=== PATIENT | female | born 1950 | race Caucasian/White ===

== ENCOUNTER → 2017-07-12 | Outpatient (CLI) | payer OTHER ==
[~2017-07-12] VITALS: Ht 160 cm; Wt 90.3 kg
[~2017-07-12] MED LIST: ATENOLOL 50MG T50 M1 PO; LIPITOR 20 MG T20 M1 PO; METFORMIN HCL500 MG PO; NORVASC5 M1 PO; PRINZIDE 20-251 EACH PO; TOUJEO SOL300 UNIT/1 SUBQ
--- NOTE | ~2017-07-12 | HPC ---
[facility] [place] [address] PAIN MANAGEMENT CONSULTATION Name: ANAT WHARTON Room #: REG [facility] M.R.#: [id number] Admission: 07/12/17 Attend Phys: Manuelito Bridges DO Discharge: Date of : 48 Report #: [id number] THIS REPORT FOR: //name// CC: Nikki Bridges The patient is a 67-year-old female seen, in consultation at the request of Dr. Jones for assistance with management of pain, primarily low back pain. She is status post lumbar decompressive laminectomy L2-L3, L3-L4 01/10/2017. The patient notes she had onset of low back pain around 2014 without antecedent trauma or overuse. She notes the pain was in the low back, groin and down the back of both legs. Following surgery, symptoms are better, but the axial back pain remain problematic. Incidentally, she prior had a left total hip arthroplasty in September 2016, with some relief of left hip pain, but the groin pain remained problematic. She has been doing physical therapy for months and notes that the low back pain, right greater than left remains problematic. She rates it 8 to "12" on a 0-10 visual analog scale. She describes continuous, burning, shooting, cramping, aching, gnawing, throbbing, sharp, stabbing, tender pain, it is exacerbated with any weightbearing. 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 She does note a single episode of right lumbar radicular pain to July, which occurred without antecedent trauma and actually brought her to the ER. This resolved somewhat with p.o. steroids. Her primary pain again is axial back, at this time left a little greater than right, though reviewing Dr. Jorge Jones's notes, her prior back pain has been right greater than left. She does have a little decreased "fuzzy" sensation in the right leg in an L4 distribution, though she notes this is fairly nominal. REVIEW OF SYSTEMS: A complete review of systems was attached to chart and was gone over with the patient. She is single. She does not smoke or drink alcohol to excess. History of diabetes, recently started on metformin, notes that her hemoglobin A1c has come down from 14 something to 6.9 at last visit. Significant hypertension for which she takes amlodipine, lisinopril, hydrochlorothiazide, and atenolol. Dyslipidemia for which she takes atorvastatin. Prior surgeries have Included the aforementioned left total hip arthroplasty in September 2016 and the aforementioned L2-L3 and L3-L4 decompressive lumbar laminectomies with Dr. Jorge Jones 01/10/2017. 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 She has been off work since September due to pain concerns. She is desirous of returning to work. Pain impact score is fairly high at 49/70. PHYSICAL EXAMINATION: Reveals a 5 feet, 3 inches, 199 pounds female, BMI is 35.3 kg/m2. Blood pressure is 121/63, pulse 80-90, respirations 16. Cranial nerves 2-12 are grossly intact. Pupils are equal, react to light and accommodation. Extraocular muscles are intact. Cervical range of motion is [facility] [address] [place] [address] PAIN MANAGEMENT CONSULTATION Name: ANAT WHARTON Room #: REG [facility] M.R.#: [id number] Admission: 07/12/17 Attend Phys: Manuelito Bridges, DO Discharge: Date of : 48 Report #: [id number] full. Thyroid is unremarkable. Upper extremity strength is preserved. Heart is regular and rhythmical without murmur. Lungs are clear to auscultation. Abdomen shows endomorphic build. Rises from chair using armrest. Gait is actually tandem. She can walk on her toes and heels. Lumbar flexion is limited to 60 degrees. Very tender from about L3 down to L5 in the lumbar paravertebral areas. Side bending and rotation significantly exacerbate pain. Lower extremity strength is preserved. Straight leg raise is negative. Patellar and Achilles reflexes with isometric contraction are symmetric. Dom's test is negative on the right, deferred on the left (status post total hip arthroplasty). DIAGNOSTIC STUDIES: All dated prior to her decompressive laminectomy. She did have severe stenosis at L3-L4, moderate AP canal narrowing at L2-L3. Did have fusion at L5-S1 with severe apophyseal joint disease, some bilateral L5-S1 neural foraminal narrowing. ASSESSMENT: Symptomatic lumbar spondylosis in a patient status post lumbar decompressive laminectomy with ongoing axial back pain. RECOMMENDATIONS: Discussion with the patient today about therapeutic option. We elected to proceed with left L2-L3, L3-L4 and L4-L5 facet joint injections under fluoroscopy as this seems to be the area of primary pain. If this affords transient relief, but pain on the right side remains problematic, we will plan on repeating proceeding the facet joint injections L2-L3, L3-L4, L4-L5 on the right at next visit. If she gets longer term relief from the steroid, we will simply see as needed. If she gets short term relief with both injections, we will move forward with medial branch dorsal rami diagnostic block in consideration of radiofrequency neurolysis of same. PROCEDURE: Left L2-L3, L3-L4 and L4-L5 facet joint injection under fluoroscopy. PROCEDURE NOTE: After written informed consent was obtained, the patient was taken to the fluoroscopy suite and placed in prone position. After sterile prep and drape, skin wheal was raised. A 22-gauge stylet needle was placed to contact the inferior aspect of left L2-L3, left L3-L4 and left L4-L5 facet joint injections. AP and lateral projections showed good needle placement. A 13 mg of triamcinolone plus 1 mL of 0.5% preservative-free bupivacaine was injected at all 3 sites. All 3 needles were removed, the area was cleansed, band-Aids applied. The patient was monitored for an appropriate period of time, discharged in good and stable condition. Fluoroscopy time was 8 seconds. <ELECTRONICALLY SIGNED> By: Manuelito Bridges DO 07/15/17 0911 1559 2144 Manuelito Bridges DO /nt
[2017-07-12 13:34] VITALS: BP 121/63
== END | disposition home or self-care (01) ==
LOC: PAIN 07:00
DX: M47.816 Spondylosis without myelopathy or radiculopathy, lumbar region (principal); G89.29 Other chronic pain; I10 Essential (primary) hypertension; E11.9 Type 2 diabetes mellitus without complications; E78.5 Hyperlipidemia, unspecified; Z79.899 Other long term (current) drug therapy; Z98.890 Other specified postprocedural states

== ENCOUNTER → 2017-07-19 | Outpatient (CLI) | payer OTHER ==
[~2017-07-19] VITALS: Ht 160 cm; Wt 91.1 kg
--- NOTE | ~2017-07-19 | HPC ---
[facility] [place] [address] [place] [address] PAIN MANAGEMENT CONSULTATION Name: ANAT WHARTON Room #: REG [facility] M..#: [id number] Admission: 07/19/17 Attend Phys: Manuelito Bridges DO Discharge: Date of : 48 Report #: [id number] THIS REPORT FOR: //name// CC: Nikki Bridges The patient is a 67-year-old female, prior seen in pain clinic on 07/12/2017, diagnosed with symptomatic lumbar radiculopathy status post decompressive laminectomy, lumbosacral spondylosis and axial back pain. She had had a prior decompressive laminectomy at L2-L3 and L3-L4 on 01/10/2017. I saw her, she had ongoing left facet mediated pain. Progressed with left L2-L3, L3-L4 and L4-L5 facet joint injection under fluoroscopy at last visit. She returns to pain clinic today noting that that procedure afforded good relief. She still has ongoing pain on the right side and we have elected to proceed with lumbar facets on the right at L2-L3, L3-L4 and L4-L5. She notes that the left side pain relief is 80% and ongoing. Physical exam is otherwise unchanged. A pleasant 67-year-old female, BMI elevated at 35.6 kilograms per meter squared. Rises from chair using the armrest, still walking with a walker. Ongoing pain in the back, she rates an 8 on the Visual Analog Scale. Again, left side is better, but right side is exacerbated with rotation and sidebending. ASSESSMENT: Symptomatic lumbosacral spondylosis in a patient status post decompressive laminectomy at multiple lumbar levels. RECOMMENDATIONS: Right L2-L3, L3-L4, and L4-L5 facet joint injection under fluoroscopy today, follow up in 2 weeks for reevaluation. If she is doing well from the steroid injection, we will simply hold off. If she is getting recurrent symptoms, we will move forward with medial branch dorsal rami diagnostic block and consideration of radiofrequency neurolysis of same. PROCEDURE: Lumbar facet joint injections x 3 on the right L2-L3, L3-L4, and L4-L5. DESCRIPTION OF PROCEDURE: After informed consent was obtained, the patient was taken to fluoroscopy suite, placed in the prone position. After sterile prep and drape, a skin wheal was raised and three 22-gauge stylet needles were placed to contact posterior aspect of the right L2-L3, L3-L4 and L4-L5 facet joints. AP and lateral projections showed good needle placement in the posterior aspect of the joint. Negative aspiration was accomplished. A 30 mg triamcinolone plus 1 mL of 0.5% preservative-free bupivacaine was injected at each site. All 3 needles removed. The area was cleansed and Band-Aids applied. The patient monitored for an appropriate period of time, discharged in good stable [address] [address] PAIN MANAGEMENT CONSULTATION Name: ANAT WHARTON Room #: REG [facility] Michael#: [id number] Admission: 07/19/17 Attend Phys: Manuelito Bridges DO Discharge: Date of : 48 Report #: [id number] condition, noting pain was decreased by 50% on discharge. Again, follow up in 2 weeks for reevaluation, cancel if doing well. Fluoroscopy time was 130 seconds. <ELECTRONICALLY SIGNED> By: Manuelito Bridges DO 07/22/17 0816 1305 2109 Manuelito Bridges DO /nt
[2017-07-19 10:39] VITALS: BP 158/93
== END | disposition home or self-care (01) ==
LOC: PAIN 06:29
DX: M47.817 Spondylosis without myelopathy or radiculopathy, lumbosacral region (principal); Z98.890 Other specified postprocedural states; Z79.899 Other long term (current) drug therapy; Z79.4 Long term (current) use of insulin; Z87.891 Personal history of nicotine dependence

== ENCOUNTER → 2017-08-02 | Outpatient (CLI) | payer OTHER ==
[~2017-08-02] VITALS: Ht 160 cm; Wt 93.0 kg
--- NOTE | ~2017-08-02 | HPC ---
[facility] [place] [address] PAIN MANAGEMENT CONSULTATION Name: ANAT WHARTON Room #: REG [facility] MPorfirio.#: [id number] Admission: 08/02/17 Attend Phys: Manuelito Bridges DO Discharge: Date of : 49 Report #: [id number] THIS REPORT FOR: //name// CC: Nikki Bridges The patient is a 67-year-old female, prior seen 07/19/2017, diagnosed with lumbar spondylosis, status post extensive decompressive laminectomy and fusion. I did write L2-L3, L3-L4 and L4-L5 facet joint injections at last visit, we had prior done left L2-L3, L3-L4 and L4-L5 facet joint injections at initial visit 07/12/2017. The patient returns to pain clinic today noting that both procedures afforded good incremental albeit transient relief. She reports pain is 7 on VAS across the mid to low back. States specifically last injection afforded 80% relief for 8-9 days. Again, pain comes back to baseline, exacerbated with standing, walking and bending, housework and vacuuming. PHYSICAL EXAMINATION: Shows 67-year-old female, BMI is 36.3 kilograms per meter squared. Upper and lower extremity strength is generally symmetric. Lumbar flexion is limited. Rotation and sidebending exacerbates axial back pain. She has well-healed surgical scar compatible with prior history of extensive decompressive lumbar laminectomy. ASSESSMENT: Symptomatic lumbar spondylosis coming from the L2-L3, L3-L4 and L4-L5 facets. RECOMMENDATIONS: We will move forward with medial branch dorsal rami diagnostic block today x 8. If this affords good yet transient relief, we will move forward with radiofrequency neurolysis. The patient understands and we will only do neurolysis one side at a time. ASSESSMENT: 1. Symptomatic lumbar spondylosis by clinical exam and history, proceed with diagnostic block. 2. Left and right-sided prior diagnostic blocks done independently 07/19/2017 and 07/12/2017. PROCEDURE: Medial branch dorsal rami diagnostic blocks at L1, L2, L3 and L4. PROCEDURE NOTE: After written informed consent was obtained, the patient was taken to fluoroscopy suite, placed in prone position. After sterile prep and drape, skin wheal was raised. Four 22-gauge stylet needles were placed to contact the superior articular process of L5, L4, L3, L2 adjacent to the medial branch dorsal rami nerves at L4, L3, L2, L1. AP and lateral projections showed good needle placement. She was turned oblique to the right and procedure was repeated. 1 mL of a 50:50 mix of 0.5% preservative-free bupivacaine plus 1.5% preservative-free Xylocaine with 1:10,000 epinephrine was injected at each of the 8 needles. All 8 needles were removed, area was cleansed, Band-Aids [address] [address] PAIN MANAGEMENT CONSULTATION Name: ANAT WHARTON Room #: REG Milind Rodriguez#: [id number] Admission: 08/02/17 Attend Phys: Manuelito Bridges DO Discharge: Date of : 48 Report #: [id number] applied. Fluoroscopy time was 16 seconds. Discharged in good and stable condition. Told to monitor pain score for the next 4 hours. The patient does note that on discharge, she had approximately 50% overall improvement. <ELECTRONICALLY SIGNED> By: Manuelito Bridges DO 08/05/17 0715 1213 1842 Manuelito Bridges DO /nt
[2017-08-02 12:03] VITALS: BP 139/75
== END | disposition home or self-care (01) ==
LOC: PAIN 07:08
DX: M47.816 Spondylosis without myelopathy or radiculopathy, lumbar region (principal); Z98.890 Other specified postprocedural states; Z87.891 Personal history of nicotine dependence; Z79.899 Other long term (current) drug therapy; Z79.4 Long term (current) use of insulin

== ENCOUNTER → 2017-08-12 | Outpatient (CLI) | payer OTHER ==
[~2017-08-12] VITALS: Ht 160 cm; Wt 90.7 kg
--- NOTE | ~2017-08-12 | HPC ---
[facility] [place] [address] [place] [address] PAIN MANAGEMENT CONSULTATION Name: ANAT WHARTON Room #: REG Milind Travis.#: [id number] Admission: 08/12/17 Attend Phys: Manuelito Bridges DO Discharge: Date of : 48 Report #: [id number] THIS REPORT FOR: //name// CC: Nikki Bridges DATE OF SERVICE: 08/12/2017 HISTORY OF PRESENT ILLNESS: The patient is a 67-year-old female being treated for lumbar spondylosis, facet generated pain, status post lumbar decompressive laminectomy. We did diagnostic facet injection on 07/19/2017. We repeated medial branch dorsal rami diagnostic blocks on 08/02/2017. The patient returns to the pain clinic today noting that both bilateral diagnostic blocks afforded good yet transient relief. She notes pain is a little worse on the left side. She wished to proceed with radiofrequency neurolysis as discussed at last visit. Pain is in the left lumbar spine, exacerbated with rotating and side bending. She rates her subjective pain score 5 on a VAS at present, 8 on a VAS with movement. Physical exam is otherwise unchanged. BMI 35.4 kilograms per meter squared. Vital signs stable as noted in the EMR. She is not on any blood thinners. She is hypertensive. Medication list was reconciled. She is not using opiate analgesics. She has some ongoing pain in the right thoracic paravertebral muscles from about T3 through T8. This appears to be more myofascial. ASSESSMENT: 1. Symptomatic lumbar spondylosis. 2. Lumbar radiculopathy status post decompressive laminectomy. 3. Myofascial pain. PROCEDURE: Left lumbar radiofrequency neurolysis x 4 (L1, L2, L3 and L4). PROCEDURE NOTE: After written and informed consent was obtained, the patient was taken to fluoroscopy suite, placed in prone position. After sterile prep and drape, skin wheal was raised. Four 10 mm RFK needles were placed to contact superior articular process of L5, L4, L3, L2 adjacent to the L1, L2, L3 and L4 medial branch dorsal rami. AP and lateral projections showed good needle placement. Initial impedance, sensory and motor testing was accomplished. A 1 mL of 1% preservative-free Xylocaine was injected through each needle. All 4 needles were heated to 80 degrees centigrade for 90 seconds. A 10 mg of triamcinolone plus 1 mL of 0.5% preservative-free Decadron was injected. All 4 needles were removed, area was cleansed, Band-Aid was [place] [address] PAIN MANAGEMENT CONSULTATION Name: ANAT WHARTON Room #: REG [facility]#: [id number] Admission: 08/12/17 Attend Phys: Manuelito Bridges DO Discharge: Date of : 48 Report #: [id number] monitored for an appropriate period of time, discharged in good and stable condition. Fluoroscopy time was under 15 seconds. <ELECTRONICALLY SIGNED> By: Manuelito Bridges DO 08/14/17 0724 1229 2039 Manuelito Bridges DO /nt
[2017-08-12 09:26] VITALS: BP 131/69
== END | disposition home or self-care (01) ==
LOC: PAIN 07:30
DX: M47.816 Spondylosis without myelopathy or radiculopathy, lumbar region (principal); M79.1 Myalgia; Z68.35 Body mass index [BMI] 35.0-35.9, adult; M54.16 Radiculopathy, lumbar region; Z87.891 Personal history of nicotine dependence

== ENCOUNTER → 2017-08-26 | Outpatient (CLI) | payer OTHER ==
[~2017-08-26] VITALS: Ht 160 cm; Wt 92.5 kg
--- NOTE | ~2017-08-26 | HPC ---
[facility] [place] [place] [address] PAIN MANAGEMENT CONSULTATION Name: ANAT WHARTON Room #: REG Milind Rodriguez#: [id number] Admission: 08/26/17 Attend Phys: Manuelito Bridges DO Discharge: Date of : 48 Report #: [id number] THIS REPORT FOR: //name// CC: Nikki Bridges The patient is a 67-year-old female being treated for lumbar radiculopathy status post decompressive laminectomy, primary component of lumbar spondylitic pain, she was last seen in the pain clinic 08/12/2017. I have done facet joint injections on July 19 and medial branch dorsal rami diagnostic blocks on August 02. We progressed to do radiofrequency neurolysis L1, 2, 3 and 4 on 08/12/2017. The patient notes back pain is dramatically improved, in fact even the right side is fairly nominal, she does have one discrete pain in the left low back in the L4-L5 area radiating around to the groin. Pain is exacerbated with rotating and side bending. It appears to be below the iliac crest on the left side. ASSESSMENT: 1. Symptomatic lumbar spondylosis by clinical exam and history, excellent improvement following the radiofrequency neurolysis of the upper lumbar generated pain. 2. Symptomatic lumbar spondylosis M47.816, M47.817 RECOMMENDATION: Left L4-L5 and L5-S1 facet joint injection under fluoroscopy today. Follow up 2 weeks for evaluation and consideration for radiofrequency neurolysis L4 and L5, repeating the L4 and new L5 dorsal rami RFL after medial branch dorsal rami diagnostic block if indicated. PROCEDURE: Two level lumbar facet joint injection under fluoroscopy, left L4-L5 and L5-S1. PROCEDURE NOTE: After written informed consent was obtained, the patient was taken to fluoroscopy suite and placed in prone position. After sterile prep and drape, skin wheal was raised. A 22-gauge stylet needle was placed to contact the inferior aspect of the left L4-L5, second needle was placed to contact the inferior aspect of the left L5-S1 facet joint. Negative aspiration was accomplished. 20 mg of triamcinolone plus 1 mL of 0.5% preservative-free bupivacaine was injected. Both needles were removed, the area was cleansed, Band-Aids applied. The patient was monitored for an appropriate period of time, discharged in good and stable condition. <ELECTRONICALLY SIGNED> By: Manuelito Bridges DO 08/29/17 1010 1203 1640 Manuelito Bridges DO /nt
[2017-08-26 10:32] VITALS: BP 126/75
== END ==
LOC: PAIN 07:36
DX: M54.16 Radiculopathy, lumbar region (principal); M47.896 Other spondylosis, lumbar region

== ENCOUNTER → 2018-09-03 | Outpatient (CLI) | payer OTHER ==
[~2018-09-03] VITALS: Ht 162.6 cm; Wt 92.8 kg
[~2018-09-03] MED LIST changes: +TRESIBA FL100 UNIT/1 SUBQ
--- NOTE | ~2018-09-03 | HPC ---
[facility] [place] [address] PAIN MANAGEMENT CONSULTATION Name: ANAT WHARTON [id number] Admission: 09/03/18 ������������������ Attend Phys: Yumiko Coto MD Discharge: ������������������ Date of : 48 Report #: [id number] THIS REPORT FOR: //name// CC: Nikki Coto DATE OF SERVICE: 09/09/2018 CHIEF COMPLAINT: New onset of neck pain. HISTORY: The patient is a 68-year-old female who has been referred to the pain clinic for recurrence of neck pain, which radiates down into her left shoulder, left arm and into her hand. She notes that the pain has been problematic since 03/2018. It is described as burning, sharp, pulling, gnawing, throbbing and shooting. Rates it as a 9/10. Notes that standing can cause worsening of pain. The patient has had surgery with fusion of three of the cervical vertebrae. She also has a history of low back pain and has had back surgery. Feels that her pain is somewhat debilitating. Has used gabapentin. Finds that medication makes her somewhat foggy, noticed a somewhat burning sensation along her left shoulder. She has come to the pain clinic with a hope of undergoing a cervical epidural steroid injection to help decrease the pain and discomfort which she is experiencing. ALLERGIES: No known drug allergies. CURRENT MEDICATIONS: Insulin subcutaneous 100 units at bedtime, metformin 500 mg Glucophage b.i.d., Lipitor 20 mg, amlodipine 5 mg, lisinopril/hydrochlorothiazide 20/25 and Atenolol 50 mg daily. PAST MEDICAL HISTORY: L2/L3 severe spinal stenosis/decompression, diabetes, hypertension. PAST SURGICAL HISTORY: Left hip replacement, low back surgery 12/2016 cervical fusion and cataract surgeries. SOCIAL HISTORY: The patient did work as a meat and seafood manager. REVIEW OF SYSTEMS: Fatigue, weakness, headaches, wears glasses, shortness of breath, and diabetes. LABORATORY DATA: 1. Lumbar spine dated 11/23/2016. L2-L3 disk space height is reduced with mild focal endplate concavities and mild circumferential disk bulging. There are short pedicles and degenerative changes of the apophyseal joints. Moderate reduction in AP diameter and spinal canal was present. 2. L3-L4 disk space height is markedly reduced with intradiscal gas and plate [address] [address] PAIN MANAGEMENT CONSULTATION Name: ANAT WHARTON Room #: REG CL Angy.#: [id number] Admission: 09/03/18 ������������������ Attend Phys: Yumiko Coto MD Discharge: ������������������ Date of : 48 Report #: [id number] irregularities, sclerosis and mild circumferential disk bulging. There were short pedicles and degenerative changes of the apophyseal joints. Severe spinal stenosis and moderate bilateral neural foraminal stenosis. 3. L4-L5 minimal posterior disk bulging is present. There were short pedicles and hypertrophic degenerative changes of the apophyseal joints. Myelogram cervical, thoracic and lumbar myelogram dated 12/24/2016, cervical spine. Contrast is present within the cervical thecal sac. There is an initial hold up of contrast flow in the cervical region at C6-C7 with neck extended. No intradural abnormality is visible. Minimal retrolisthesis C3 on C4 is present with reduced disk space height and anterior indentation of the dural sac. 4. C4-C5 and C5-C6 vertebrae are fused with anterior plate, screws and interbody grafts. There is prominent anterior C6-C7 indentation of the dural sac. At C6-C7 nerve root contrast filling is reduced. Remaining nerve root sheath is normal in appearance. The spinal canal is normal in diameter. IMPRESSION anterior indentation of the dural sac at C6-C7 with reduced contrast filling of nerve root sheaths. C4/C6 fusion. Mild retrolisthesis C3 on C4 with anterior indentation of the dura. PAIN CLINIC ASSESSMENT/PQRS: 1. History of osteoarthritis. The patient has arthritic changes in the lower portion of her back as well as with the cervical fusion. 2. The patient has not been treated for rheumatoid arthritis. 3. Height 5 feet 4 inches, weight 204 pounds, BMI is 35.1. 4. Vital Signs: 134/66, pulse 64, respiratory rate 18, room air saturation is 100%. 5. Pain intensity 9/10. 6. Fall risk. The patient has not fallen in the last 3 months. 7. Blood thinner. The patient is not on a blood thinning medication. 8. Hypertension. The patient is being treated for hypertension. 9. Opioids greater than 6 weeks. The patient is not receiving opioid medications. 10. Risk assessment tool, low for opioid use 0/3. 11. Functional assessment tool 57/70. 12. Recreational drug use. The patient denies use of recreational drugs. 13. Tobacco: The patient has never smoked. 14. Alcohol. The patient drinks 1-2 alcoholic beverages on occasion. PHYSICAL EXAMINATION: GENERAL: The patient is a well-developed, well-nourished white female. Appears her stated age. She is alert and oriented x 3. Her affect is appropriate. Speech is fluent. HEENT: Normocephalic, atraumatic. Extraocular muscles intact. Sclerae nonicteric. The patient has some limitation in movement of her neck secondary to history of fusion at 3 levels. The patient complains of pain and discomfort on the left side with pain that is radiating down into the left arm with [facility] [address] [place] [address] PAIN MANAGEMENT CONSULTATION Name: ANAT WHARTON Room #: REG [facility] Angy.#: [id number] Admission: 09/03/18 ������������������ Attend Phys: Yumiko Coto MD Discharge: ������������������ Date of : 48 Report #: [id number] numbness and tingling involving the fingers and burning along her shoulder area. Left and right lateral tilting cause some increased pain in the left arm. HEART: Regular rate. ABDOMEN: Nontender. Bowel sounds present. EXTREMITIES: Upper extremity muscle strength is judged to be 5-/5 for the right upper extremity and 4/5 for the left. Deep tendon reflexes are +1 for the left as well as the right biceps. Lower extremity muscle strength is judged to be 5-/5 for the major muscle groups. Deep tendon reflexes are absent at the knees bilaterally. The patient is able to lift her right arm above her head. Left arm lifting above her head is limited. Complains of burning pain along the shoulder area. Numbness and tingling involving the left upper extremity. IMPRESSION: Cervical radiculopathy. RECOMMENDATIONS: We discussed treatment options with the patient. Risks and benefits of a cervical epidural steroid injection were discussed. They include but are not limited to infection, worsening of pain, no improvement in pain, nerve damage, paralysis. The patient elects to proceed. PROCEDURE NOTE: The patient was taken to the procedure area. She was assisted in getting on the examination table. Her neck was sterilely prepped with a Betadine solution and allowed to dry. Use of fluoroscopy anterior, posterior as well as lateral viewing were implemented. The patient's neck was infiltrated at the C7-T1 interspace with 0.25% bupivacaine using a 25-gauge needle. A 17-gauge Tuohy with loss of resistance technique was used to gain access to the epidural space. There was no CSF, heme or paresthesia. A total of 120 mg triamcinolone was injected after appropriate placement. The patient tolerated the procedure well. A total of 18 seconds fluoroscopy time was used. The patient will follow up in the future as needed. We would like to thank you for letting us participate in her care. We hope she continues to improve. ��������������������������������������������� ���������������������������������������� By: ��������������������������������������������� [id number] Yumiko Coto MD /drew
[2018-09-03 08:58] VITALS: BP 134/66
--- NOTE | 2018-09-03 09:28 | NUR ---
Pain Clinic Assessment: 1. History of Osteoarthritis: Not Applicable History of Rheumatoid Arthritis: Not Applicable 2. Height: 5 ft. 4 in. 162.6 cm. Weight: 204.6 lb. oz. 92.806 kg. Patient's BMI: 35.1 3. Vital Signs: BP: 134/66 Pulse: 64 Resp: 18 Temp: 02 Sat: 100 ECG Mon: 4. Pain Intensity: 9 5. Fall Risk: Dizziness: N Needs help standing or walking: N Fallen in the last 3 months: Y Fall risk comments: 6. Patient on Blood Thinner: None 7. History of Hypertension: Y 8. Opioid Therapy greater than 6 weeks: N Opiate Contract Signed: 9. Risk Assessment Tool Provided: LOW RISK 0/3 10. Functional Assessment Tool: 57/70 11. Recreational Drug Use: Never Drug Type: Tobacco Use: Never Smoker Tobacco Type: Amount or Packs/day: How Many Years: Alcohol Use: Yes Frequency: Weekly Quant: 1-2
== END | disposition home or self-care (01) ==
LOC: PAIN 06:50
DX: M54.12 Radiculopathy, cervical region (principal); G89.29 Other chronic pain; I10 Essential (primary) hypertension; E11.9 Type 2 diabetes mellitus without complications; Z96.642 Presence of left artificial hip joint; Z98.890 Other specified postprocedural states; Z79.4 Long term (current) use of insulin; Z79.899 Other long term (current) drug therapy

== ENCOUNTER → 2018-09-19 | Outpatient (CLI) | payer OTHER ==
[~2018-09-19] VITALS: Ht 160 cm; Wt 91.7 kg
[~2018-09-19] MED LIST changes: +IBUPROFEN 200200 M1 PO
[2018-09-19 13:15] VITALS: BP 141/68
--- NOTE | 2018-09-19 13:32 | NUR ---
Pain Clinic Assessment: 1. History of Osteoarthritis: Not Applicable History of Rheumatoid Arthritis: Not Applicable 2. Height: 5 ft. 3 in. 160.0 cm. Weight: 202.2 lb. oz. 91.717 kg. Patient's BMI: 35.8 3. Vital Signs: BP: 141/68 Pulse: 56 Resp: 16 Temp: 02 Sat: 97 ECG Mon: 4. Pain Intensity: 10 5. Fall Risk: Dizziness: N Needs help standing or walking: N Fallen in the last 3 months: N Fall risk comments: 6. Patient on Blood Thinner: None 7. History of Hypertension: Y 8. Opioid Therapy greater than 6 weeks: N Opiate Contract Signed: 9. Risk Assessment Tool Provided: LOW RISK 0/3 10. Functional Assessment Tool: 57/70 11. Recreational Drug Use: Never Drug Type: Tobacco Use: Never Smoker Tobacco Type: Amount or Packs/day: How Many Years: Alcohol Use: Yes Frequency: Weekly Quant:
== END | disposition home or self-care (01) ==
LOC: PAIN 06:59
DX: M54.12 Radiculopathy, cervical region (principal); Z88.8 Allergy status to other drugs, medicaments and biological substances; Z79.899 Other long term (current) drug therapy; Z79.84 Long term (current) use of oral hypoglycemic drugs; Z79.4 Long term (current) use of insulin

== ENCOUNTER → 2018-12-24 | Outpatient (CLI) | payer OTHER ==
[~2018-12-24] VITALS: Ht 160 cm; Wt 99.2 kg
[2018-12-24 12:51] VITALS: BP 154/60
--- NOTE | 2018-12-24 13:16 | NUR ---
Pain Clinic Assessment: 1. History of Osteoarthritis: Not Applicable History of Rheumatoid Arthritis: Not Applicable 2. Height: 5 ft. 3 in. 160.0 cm. Weight: 218.8 lb. oz. 99.247 kg. Patient's BMI: 38.8 3. Vital Signs: BP: 154/60 Pulse: 55 Resp: 18 Temp: 02 Sat: 97 ECG Mon: 4. Pain Intensity: 10 5. Fall Risk: Dizziness: N Needs help standing or walking: N Fallen in the last 3 months: N Fall risk comments: 6. Patient on Blood Thinner: None 7. History of Hypertension: Y 8. Opioid Therapy greater than 6 weeks: N Opiate Contract Signed: 9. Risk Assessment Tool Provided: LOW RISK 0/3 10. Functional Assessment Tool: 57/70 11. Recreational Drug Use: Never Drug Type: Tobacco Use: Never Smoker Tobacco Type: Amount or Packs/day: How Many Years: Alcohol Use: Yes Frequency: Quant:
== END | disposition home or self-care (01) ==
LOC: PAIN 06:55
DX: M54.12 Radiculopathy, cervical region (principal); G89.29 Other chronic pain

== ENCOUNTER → 2019-05-13 | Outpatient (CLI) | payer OTHER ==
[~2019-05-13] VITALS: Ht 160 cm; Wt 99.4 kg
[~2019-05-13] MED LIST changes: +FUROSEMIDE 40 M40 MG PO; +KLOR-CON 10 ER10 MEQ PO
[2019-05-13 09:05] VITALS: BP 145/91
--- NOTE | 2019-05-13 09:06 | NUR ---
Pain Clinic Assessment: 1. History of Osteoarthritis: Not Applicable History of Rheumatoid Arthritis: Not Applicable 2. Height: 5 ft. 3 in. 160.0 cm. Weight: 219.2 lb. oz. 99.429 kg. Patient's BMI: 38.8 3. Vital Signs: BP: 145/91 Pulse: 57 Resp: 16 Temp: 02 Sat: 97 ECG Mon: 4. Pain Intensity: 10 5. Fall Risk: Dizziness: N Needs help standing or walking: N Fallen in the last 3 months: N Fall risk comments: 6. Patient on Blood Thinner: None 7. History of Hypertension: Y 8. Opioid Therapy greater than 6 weeks: N Opiate Contract Signed: 9. Risk Assessment Tool Provided: LOW RISK 0/3 10. Functional Assessment Tool: 11. Recreational Drug Use: Never Drug Type: Tobacco Use: Never Smoker Tobacco Type: Amount or Packs/day: How Many Years: Alcohol Use: Yes Frequency: Quant:
--- NOTE | 2019-05-22 15:38 | HPC ---
[facility] [address] [place] [address] PAIN MANAGEMENT CONSULTATION Name: ANAT WHARTON Room #: REG SAÚL Angy.#: [id number] Admission: 05/13/19 Attend Phys: Yumiko Coto MD Discharge: Date of : 48 Report #: [id number] THIS REPORT FOR: //name// CC: Nikki Coto DATE OF SERVICE: 05/13/2019 FOLLOWUP HISTORY: "The pain was good for about 3-1/2 months, but has now returned in my arm." HISTORY: The patient is a 69-year-old female who has been followed in the pain clinic because of chronic pain. She was 100% pain free after the last epidural injection. This continued for a number of months. Over the last few weeks, she has noted a worsening of her pain. It has now started to become more problematic and reached a level where it is problematic. She would like to proceed with another epidural injection. As you may recall, she has already had surgery on her neck. She does have instrumentation in the neck area. She notes that there is pain, which radiates across her shoulder and down into both arms. She notes some discomfort in her hands, left and right. There is a burning component. She notes some sharp, pulling, gnawing, throbbing pain with weakness. Rates the intensity as a 10/10. Pain is exacerbated when she is reaching for things. More problematic when she is lifting. Limits her activity. Has altered her sleeping pattern. Notes some improvement with use of medications. She has tried heat in the past and gleaned some benefit from that. ALLERGIES: No known drug allergies. CURRENT MEDICATIONS: Insulin subcutaneous 100 units as directed, metformin 500 mg p.o. b.i.d., Lipitor 20 mg, amlodipine 5 mg, lisinopril/hydrochlorothiazide 20/25, and atenolol 50 mg at bedtime. PAIN CLINIC ASSESSMENT AND PQRS: 1. The patient is experiencing pain and discomfort in her neck with pain radiating down to her arms. She has had cervical fusion. She is not being treated for rheumatoid arthritis. 2. Height 5 feet 3 inches, weight 219 pounds, BMI 38.8. 3. Vital signs: Blood pressure 145/91, pulse 57, respiratory rate 16, room air saturation 97%. 4. Pain intensity 04/09. 5. Fall risk. The patient has not fallen in the last 3 months. 6. Blood thinner. The patient is not on a blood thinning medication. 7. Hypertension. The patient is being treated for hypertension. 8. Opioids greater than 6 weeks. The patient is not on her opioid regimen. 9. Risk assessment tool, low for opioid use. 10. Functional assessment tool 57/70. [address] [address] PAIN MANAGEMENT CONSULTATION Name: ANAT WHARTON [id number] Admission: 05/13/19 Attend Phys: Yumiko Coto MD Discharge: Date of : 48 Report #: [id number] 11. Recreational drugs: The patient denies. 12. Tobacco: The patient denies. 13. Alcohol: The patient occasionally drinks alcoholic beverages. PHYSICAL EXAMINATION: GENERAL: The patient is a well-developed, well-nourished, somewhat obese white female, appears her stated age. She is alert and oriented x 3. Her affect is appropriate. Speech is fluent. HEENT: Normocephalic, atraumatic. Extraocular eye muscles intact. Sclerae nonicteric. Mucous membranes are moist. NECK: Without adenopathy or JVD. The patient has some numbness and tingling radiating down to her left as well as the right arm. Notes some tingling down into her fingers. Has perception of weakness in her arms. HEART: Regular rate. ABDOMEN: Nontender. Bowel sounds present. MUSCULOSKELETAL: Upper extremity muscle strength judged to be 5-/5 for the major muscle groups in the upper extremity. On the right side, it is 4/5 for muscle strength. The patient is without scoliosis, kyphosis or lordosis. Lower extremity muscle strength is 5-/5 for the major muscle groups in the lower extremity. IMPRESSION: 1. Cervical radiculopathy, which has improved in the past with cervical epidural steroid injection. 2. Failed neck surgery with radiculopathy. 3. Diabetes. 4. Hypertension. RECOMMENDATIONS: We discussed treatment options with the patient. At this juncture, we will continue with her current medications. She will monitor her blood sugars. Possible complications of the procedure, which could include but are not limited to infection, worsening pain, no improvement in pain, bleeding, nerve damage and the patient elects to proceed. PROCEDURE NOTE: The patient was taken to the procedure area. She was then assisted in getting on examination table. Her neck was sterilely prepped with a Betadine solution and allowed to dry. A 0.25% bupivacaine was used to anesthetize the area. A 25-gauge needle was used. A 17-gauge Tuohy at C7-T1 was used to gain access to the epidural space. There was no CSF, heme or paresthesia. Total of 120 mg triamcinolone was injected. The patient tolerated the procedure well. Total of 21 seconds fluoroscopy time was used. The patient's pain decreased from 10 to 7 at the time of discharge. She will follow up in the future as needed. She will monitor her blood sugars. [facility] [address] [place] [address] PAIN MANAGEMENT CONSULTATION Name: ANAT WHARTON [facility]#: [id number] Admission: 05/13/19 Attend Phys: Yumiko Coto MD Discharge: Date of : 48 Report #: [id number] We would like to thank you for letting us participate in her care. We hope she continues to improve. <ELECTRONICALLY SIGNED> By: Yumiko Coto MD 05/22/19 [id number] Yumiko Coto MD /nt
== END | disposition home or self-care (01) ==
LOC: PAIN 06:52
DX: M54.12 Radiculopathy, cervical region (principal); G89.29 Other chronic pain; I10 Essential (primary) hypertension; E11.9 Type 2 diabetes mellitus without complications; Z98.890 Other specified postprocedural states; Z79.899 Other long term (current) drug therapy; Z79.4 Long term (current) use of insulin

== ENCOUNTER → 2019-11-18 | Outpatient (CLI) | payer OTHER ==
[~2019-11-18] VITALS: Ht 160 cm; Wt 99.9 kg
[~2019-11-18] MED LIST changes: +LISINOPRIL20 MG PO
[2019-11-18 10:39] VITALS: BP 154/75
--- NOTE | 2019-11-18 10:54 | NUR ---
Pain Clinic Assessment: 1. History of Osteoarthritis: Not Applicable History of Rheumatoid Arthritis: Not Applicable 2. Height: 5 ft. 3 in. 160.0 cm. Weight: 220.2 lb. oz. 99.882 kg. Patient's BMI: 39.0 3. Vital Signs: BP: 154/75 Pulse: 58 Resp: 16 Temp: 02 Sat: 99 ECG Mon: 4. Pain Intensity: 8 5. Fall Risk: Dizziness: N Needs help standing or walking: N Fallen in the last 3 months: N Fall risk comments: 6. Patient on Blood Thinner: None 7. History of Hypertension: Y 8. Opioid Therapy greater than 6 weeks: N Opiate Contract Signed: 9. Risk Assessment Tool Provided: LOW RISK 0/3 10. Functional Assessment Tool: 57/70 11. Recreational Drug Use: Never Drug Type: Tobacco Use: Never Smoker Tobacco Type: Amount or Packs/day: How Many Years: Alcohol Use: Yes Frequency: Quant:
== END | disposition home or self-care (01) ==
LOC: PAIN 07:02
DX: M54.12 Radiculopathy, cervical region (principal); G89.29 Other chronic pain; I10 Essential (primary) hypertension; E11.9 Type 2 diabetes mellitus without complications; Z98.890 Other specified postprocedural states; Z79.899 Other long term (current) drug therapy

== ENCOUNTER → 2020-03-23 | Outpatient (CLI) | payer OTHER ==
[~2020-03-23] VITALS: Ht 157.5 cm; Wt 98.9 kg
--- NOTE | ~2020-03-23 | HPC ---
[facility] [place] [address] PAIN MANAGEMENT CONSULTATION Name: ANAT WHARTON Room #: REG SAÚL Angy.#: [id number] Admission: 03/23/20 Attend Phys: Yumiko Coto MD Discharge: Date of : 48 Report #: [id number] CC: Nikki Coto DATE OF SERVICE: 03/23/2020 CHIEF COMPLAINT: "Low back pain and I would like to have another injection." HISTORY: The patient is a 70-year-old female, who has been followed in the Pain Clinic. She has undergone epidural steroid injections in the past. She has gleaned very good relief from them. She returns today indicating that her pain has increased. She rates it as a 10/10. It radiates down the right side of her back, buttocks, and into the thigh to the lateral portion of her knee. The big toe is involved. Previous injections provided good relief. There is a burning sensation, sharp, aching, throbbing discomfort. Pain is worse when she is doing activity such as washing dishes. Sometimes, it can be problematic when she is lying down. She finds that use of cold compresses as well as medications can be helpful. She does lie on a wedge. ALLERGIES: No known drug allergies. CURRENT MEDICATIONS: Insulin subcutaneous 100 units as directed, metformin 500 mg b.i.d., Lipitor 20 mg, amlodipine 5 mg, lisinopril/hydrochlorothiazide 20/25, atenolol 50 mg at bedtime. PAIN CLINIC ASSESSMENT AND PQRS: 1. The patient has some discomfort in her neck that radiates down to her arms. She also has had a fusion in the cervical area. She is not being treated for rheumatoid arthritis. 2. Height 5 feet 3 inches, weight 218 pounds, BMI not calculated. 3. Vital signs: Blood pressure 143/53, pulse 57, respiratory rate 16, room air saturation 96%. 4. Pain intensity: 10/10. 5. Fall history: The patient has not fallen in the last 3 months. 6. Blood thinner: The patient is not on a blood thinning medication. 7. Hypertension: The patient is being treated for hypertension. 8. Opioids greater than 6 weeks: The patient receives medication from her primary physician. 9. Risk assessment tool: Low for opioid use. 10. Functional assessment tool: 57/70. 11. Recreational drug use: The patient denies. 12. Tobacco: The patient has never smoked. 13. Alcohol: The patient occasionally drinks alcoholic beverages. PHYSICAL EXAMINATION: GENERAL: The patient is a well-developed, well-nourished, white female. She is somewhat obese. Appears her stated age. She is alert and oriented x 3. HEENT: Normocephalic, atraumatic. Extraocular eye muscles intact. Sclerae nonicteric. Mucous membranes are moist. The patient is wearing a facial covering. HEART: Regular rate. ABDOMEN: Nontender. Bowel sounds present. MUSCULOSKELETAL: She complains of some pain and discomfort in her arms with tingling that radiates down to the left as well as the right arm. It involves her fingers with tingling. She has perception of weakness in her arms. Upper extremity muscle strength is judged to be 5-/5 for the major muscle groups in the upper extremity. The patient has some right-sided discomfort with weakness in the L4-L5 dermatomal distribution. The patient is without scoliosis, kyphosis or lordosis. She has a well-healed scar in the lower portion of the back. Lower extremity muscle strength is judged to be 5-/5 for the major muscle groups in the lower extremity. IMPRESSION: 1. Cervical radiculopathy that improved in the past. 2. Failed neck surgery with radiculopathy. 3. Lumbar radiculopathy. 4. Diabetes. 5. Hypertension. RECOMMENDATIONS: We discussed treatment options with the patient. Risks and benefits of an epidural steroid injection were discussed. Possible complications of the procedure, which could include but are not limited to infection, worsening pain, no improvement in pain, nerve damage, bleeding were discussed. We also reviewed the problems with opioid medications. We discussed problems with steroid use at this time given there is a pandemic with COVID-19. Steroids can decrease one's ability to boost immune reaction, the patient is aware. She elects to proceed. PROCEDURE NOTE: The patient was taken to the procedure area. She was then assisted in getting on the examination table. Her back was sterilely prepped with betadine solution. 0.25% bupivacaine was infiltrated in the low back area. A transforaminal approach at L4-L5 on the right was undertaken. 0.25% bupivacaine was infiltrated. A 20-gauge spinal needle was then used to gain access to the appropriate transforaminal location. Anterior, posterior as well as lateral viewing confirmed appropriate placement. A total of 80 mg Depo-Medrol and 40 mg triamcinolone was injected. The patient tolerated the procedure well. Her pain decreased from 10 to 7 at the time of discharge. She will follow up in the future. 16 seconds fluoroscopy time was used. By: [id number] Yumiko Coto MD /drew
[2020-03-23 13:26] VITALS: BP 143/53
--- NOTE | 2020-03-23 13:35 | NUR ---
Pain Clinic Assessment: 1. History of Osteoarthritis: Not Applicable History of Rheumatoid Arthritis: Not Applicable 2. Height: 5 ft. 2 in. 157.5 cm. Weight: 218.0 lb. oz. 98.884 kg. Patient's BMI: 39.9 3. Vital Signs: BP: 143/53 Pulse: 57 Resp: 16 Temp: 02 Sat: 96 ECG Mon: 4. Pain Intensity: 10 5. Fall Risk: Dizziness: N Needs help standing or walking: N Fallen in the last 3 months: N Fall risk comments: 6. Patient on Blood Thinner: None 7. History of Hypertension: Y 8. Opioid Therapy greater than 6 weeks: N Opiate Contract Signed: 9. Risk Assessment Tool Provided: LOW RISK 0 10. Functional Assessment Tool: 57/ 11. Recreational Drug Use: Never Drug Type: Tobacco Use: Never Smoker Tobacco Type: Amount or Packs/day: How Many Years: Alcohol Use: Yes Frequency: Quant:
== END | disposition home or self-care (01) ==
LOC: PAIN 06:48
PROVIDERS: ATTEND Anesthesiology Pain Medicine
DX: M54.16 Radiculopathy, lumbar region (principal); G89.29 Other chronic pain; M54.12 Radiculopathy, cervical region; I10 Essential (primary) hypertension; E11.9 Type 2 diabetes mellitus without complications; Z98.890 Other specified postprocedural states; Z79.899 Other long term (current) drug therapy

== ENCOUNTER → 2020-05-18 | Outpatient (CLI) | payer OTHER ==
[~2020-05-18] VITALS: Ht 157.5 cm; Wt 100.9 kg
--- NOTE | ~2020-05-18 | HPC ---
[facility] [place] [address] PAIN MANAGEMENT CONSULTATION Name: ANAT WHARTON Room #: REG SAÚL Travis.#: [id number] Admission: 05/18/20 Attend Phys: Yumiko Coto MD Discharge: Date of : 48 Report #: [id number] THIS REPORT FOR: cc: Nikki Medellin,Yumiko Mejia MD ~ CC: Nikki Coto DATE OF SERVICE: 05/18/2020 PRIMARY CARE PHYSICIAN: Nikki Medellin DO CHIEF COMPLAINT: Cervical neck pain. HISTORY: The patient is a 70-year-old female who has been seen in the pain clinic. She has returned today with complaints of pain in her low back, which has improved. She is now having pain and discomfort in the neck and arm area. Notes that her pain is worse when she is doing dishes. She is having pain that is radiating down into her left arm as well as some pain in her right forearm. She has had surgery in the past with instrumentation in the cervical area. She has screws and plates in place. She elects today to undergo a cervical epidural steroid injection to help her pain. ALLERGIES: No known drug allergies. CURRENT MEDICATIONS: Insulin subcutaneous 100 units as directed, metformin 500 mg b.i.d., Lipitor 20 mg, amlodipine 5 mg, lisinopril/hydrochlorothiazide 20/25, atenolol 50 mg at bedtime. PAIN CLINIC ASSESSMENT AND PQRS: 1. The patient has some discomfort in her neck with pain radiating down to her arms. She has had fusion in the cervical area. She is not being treated for rheumatoid arthritis. 2. Height 5 feet 3 inches, weight 222 pounds, BMI is 40. 3. Vital Signs: Blood pressure 153/73, pulse is 56, respiratory rate 16, room air saturation 97%. 4. Pain intensity, 10/10. 5. Fall history: The patient has not fallen in the last 3 months. 6. Blood thinner. The patient is not on a blood thinning medication. 7. Hypertension. The patient is being treated for hypertension. 8. Opioids greater than 6 weeks. The patient receives medications from her primary. 9. Risk assessment tool, low for opioid use. 10. Functional assessment tool, 57/70. 11. Recreational drug use: The patient denies. [address] [address] PAIN MANAGEMENT CONSULTATION Name: ANAT WHARTON Room #: REG CL Michael#: [id number] Admission: 05/18/20 Attend Phys: Yumiko Coto MD Discharge: Date of : 48 Report #: [id number] 12. Tobacco: The patient denies. PHYSICAL EXAMINATION: GENERAL: The patient is a well-developed, well-nourished white female. Somewhat obese. She is alert and oriented x 3. Her affect is appropriate. Speech is fluent. HEENT: Normocephalic, atraumatic. Extraocular eye muscles intact. The patient is wearing a facial covering. NECK: The patient has some decreased range of motion. Has some pain and discomfort in her neck. Has pain that radiates down into both left and right arm. It involves pain in the right forearm area. HEART: Regular rate. LUNGS: Clear. ABDOMEN: Nontender. MUSCULOSKELETAL: The patient has some discomfort in her arms with tingling that radiates down into them. Notes some decreased strength in her arms. Muscle strength judged to be 5-/5 for the major muscle groups in the upper extremity. The patient has some history of right-sided weakness and discomfort in the L4-L5 dermatomal distribution. The patient is without scoliosis, kyphosis or lordosis. The patient has a well-healed scar in the lower portion of her back. Lower extremity muscle strength judged to be 5-/5 for the major muscle groups in the lower extremity. IMPRESSION: 1. Cervical radiculopathy, which has become more problematic. 2. Failed neck surgery with radiculopathy. 3. Lumbar radiculopathy. 4. Diabetes. 5. Hypertension. RECOMMENDATIONS: We discussed treatment options with the patient. Risks and benefits of a cervical epidural steroid injection were discussed. They include but are not limited to infection, worsening pain, no improvement in pain, nerve damage. We have discussed the problems with COVID-19. Steroids can decrease one's ability to mount an allergic response. Should the patient become infected, she may have a more difficult time with the pain. PROCEDURE NOTE: The patient was taken to the procedure area. She was then assisted in getting on the examination table. Her back was sterilely prepped with a Betadine solution. A 0.25% bupivacaine was infiltrated at the C7-T1 interspace. A cervical view using fluoroscopy anterior, posterior were provided. At the C7-T1 interspace a 17-gauge Tuohy with loss of resistance technique was used to gain access to the epidural space. There was no CSF, heme or paresthesia. A total of 120 mg triamcinolone was injected. The patient tolerated the procedure well. She remained in the Pain Clinic for an appropriate amount of time. She will follow up in the future as needed. [address] [address] PAIN MANAGEMENT CONSULTATION Name: ANAT WHARTON Room #: REG CLI Angy.#: [id number] Admission: 05/18/20 Attend Phys: Yumiko Coto MD Discharge: Date of : 48 Report #: [id number] We would like to thank you for letting us participate in her care. We hope she continues to improve. By: [id number] Yumiko Coto MD /SB
[2020-05-18 09:36] VITALS: BP 153/73
--- NOTE | 2020-05-18 10:00 | NUR ---
Pain Clinic Assessment: 1. History of Osteoarthritis: Not Applicable History of Rheumatoid Arthritis: Not Applicable 2. Height: 5 ft. 2 in. 157.5 cm. Weight: 222.4 lb. oz. 100.880 kg. Patient's BMI: 40.7 3. Vital Signs: BP: 153/73 Pulse: 56 Resp: 16 Temp: 02 Sat: 97 ECG Mon: 4. Pain Intensity: 10 5. Fall Risk: Dizziness: N Needs help standing or walking: N Fallen in the last 3 months: N Fall risk comments: 6. Patient on Blood Thinner: None 7. History of Hypertension: Y 8. Opioid Therapy greater than 6 weeks: N Opiate Contract Signed: 9. Risk Assessment Tool Provided: LOW RISK 0 10. Functional Assessment Tool: 57/ 11. Recreational Drug Use: Never Drug Type: Tobacco Use: Never Smoker Tobacco Type: Amount or Packs/day: How Many Years: Alcohol Use: Yes Frequency: Quant:
== END | disposition home or self-care (01) ==
LOC: PAIN 06:49
PROVIDERS: ATTEND Anesthesiology Pain Medicine
DX: M54.12 Radiculopathy, cervical region (principal); M96.1 Postlaminectomy syndrome, not elsewhere classified; M54.16 Radiculopathy, lumbar region; I10 Essential (primary) hypertension; E11.9 Type 2 diabetes mellitus without complications; Z98.890 Other specified postprocedural states; Z79.899 Other long term (current) drug therapy

== ENCOUNTER → 2020-10-14 | Outpatient (CLI) | payer OTHER ==
[~2020-10-14] VITALS: Ht 157.5 cm; Wt 95.8 kg
[~2020-10-14] MED LIST changes: +OZEMPIC1 MG/0.71 SUBQ
[2020-10-14 09:37] VITALS: BP 107/51
--- NOTE | 2020-10-14 09:54 | NUR ---
Pain Clinic Assessment: 1. History of Osteoarthritis: Not Applicable History of Rheumatoid Arthritis: Not Applicable 2. Height: 5 ft. 2 in. 157.5 cm. Weight: 211.2 lb. oz. 95.800 kg. Patient's BMI: 38.6 3. Vital Signs: BP: 107/51 Pulse: 65 Resp: 16 Temp: 02 Sat: 97 ECG Mon: 4. Pain Intensity: 5 5. Fall Risk: Dizziness: N Needs help standing or walking: N Fallen in the last 3 months: N Fall risk comments: 6. Patient on Blood Thinner: None 7. History of Hypertension: Y 8. Opioid Therapy greater than 6 weeks: N Opiate Contract Signed: 9. Risk Assessment Tool Provided: LOW RISK 0 10. Functional Assessment Tool: 57/70 11. Recreational Drug Use: Never Drug Type: Tobacco Use: Never Smoker Tobacco Type: Amount or Packs/day: How Many Years: Alcohol Use: Yes Frequency: Special Occasions Quant: 2-3
== END | disposition home or self-care (01) ==
LOC: PAIN 09:07
PROVIDERS: ATTEND Anesthesiology Pain Medicine
DX: M54.12 Radiculopathy, cervical region (principal); M54.16 Radiculopathy, lumbar region; M96.1 Postlaminectomy syndrome, not elsewhere classified; I10 Essential (primary) hypertension; E11.9 Type 2 diabetes mellitus without complications; Z98.890 Other specified postprocedural states; Z79.899 Other long term (current) drug therapy; Z79.4 Long term (current) use of insulin; Z96.642 Presence of left artificial hip joint; Z88.8 Allergy status to other drugs, medicaments and biological substances

== ENCOUNTER → 2021-01-04 | Outpatient (CLI) | payer OTHER ==
[~2021-01-04] VITALS: Ht 157.5 cm; Wt 95.8 kg
[2021-01-04 12:43] VITALS: BP 145/89
--- NOTE | 2021-01-04 13:19 | NUR ---
Pain Clinic Assessment: 1. 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 Height: 5 ft. 2 in. 157.5 cm. Weight: 211.2 lb. oz. 95.800 kg. Patient's BMI: 38.6 3. Vital Signs: BP: 145/89 Pulse: 70 Resp: 16 Temp: 02 Sat: 97 ECG Mon: 4. Pain Intensity: 8 5. Fall Risk: Dizziness: N Needs help standing or walking: N Fallen in the last 3 months: N Fall risk comments: 6. Patient on Blood Thinner: None 7. History of Hypertension: Y 8. Opioid Therapy greater than 6 weeks: N Opiate Contract Signed: 9. Risk Assessment Tool Provided: LOW RISK 0 10. Functional Assessment Tool: 57/ 11. Recreational Drug Use: Never Drug Type: Tobacco Use: Former Smoker Tobacco Type: Amount or Packs/day: How Many Years: Alcohol Use: Yes Frequency: Special Occasions Quant: 1
== END | disposition home or self-care (01) ==
LOC: PAIN 09:17
PROVIDERS: ATTEND Anesthesiology Pain Medicine
DX: M54.12 Radiculopathy, cervical region (principal); M96.1 Postlaminectomy syndrome, not elsewhere classified; M54.16 Radiculopathy, lumbar region; I10 Essential (primary) hypertension; E11.9 Type 2 diabetes mellitus without complications; M19.90 Unspecified osteoarthritis, unspecified site; Z98.890 Other specified postprocedural states; Z79.899 Other long term (current) drug therapy; Z79.4 Long term (current) use of insulin; Z87.891 Personal history of nicotine dependence; Z96.642 Presence of left artificial hip joint; Z88.8 Allergy status to other drugs, medicaments and biological substances

== ENCOUNTER → 2021-04-21 | Outpatient (CLI) | payer OTHER ==
[~2021-04-21] VITALS: Ht 157.5 cm; Wt 96.2 kg
[2021-04-21 10:00] VITALS: BP 158/86
--- NOTE | 2021-04-21 10:29 | NUR ---
Pain Clinic Assessment: 1. 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 Height: 5 ft. 2 in. 157.5 cm. Weight: 212.0 lb. oz. 96.163 kg. Patient's BMI: 38.8 3. Vital Signs: BP: 158/86 Pulse: 69 Resp: 16 Temp: 02 Sat: 95 ECG Mon: 4. Pain Intensity: 9 5. Fall Risk: Dizziness: N Needs help standing or walking: N Fallen in the last 3 months: N Fall risk comments: 6. Patient on Blood Thinner: None 7. History of Hypertension: Y 8. Opioid Therapy greater than 6 weeks: N Opiate Contract Signed: 9. Risk Assessment Tool Provided: LOW RISK 0 10. Functional Assessment Tool: 57/70 11. Recreational Drug Use: Never Drug Type: Tobacco Use: Former Smoker Tobacco Type: Amount or Packs/day: How Many Years: Alcohol Use: Yes Frequency: Quant:
== END ==
LOC: PAIN 06:43
PROVIDERS: ATTEND Anesthesiology Pain Medicine
DX: M54.2 Cervicalgia (principal); M54.12 Radiculopathy, cervical region; M54.16 Radiculopathy, lumbar region; I10 Essential (primary) hypertension; E11.9 Type 2 diabetes mellitus without complications; M19.90 Unspecified osteoarthritis, unspecified site; Z87.891 Personal history of nicotine dependence; Z79.899 Other long term (current) drug therapy